=== PATIENT | male | born 1980 | race Two or more races ===

== ENCOUNTER 2019-08-29 00:18 | Emergency (ER) | payer MEDICAID ==
[~2019-08-29] VITALS: Ht 177.8 cm; Wt 156.5 kg
[2019-08-29] MEDS ORDERED: IOHEXOL 300 MG/ML 100ML BOTTLE IJ ONE (01:06)
[2019-08-29 01:23] LABS: Basophils # (auto) 0 uL; Basophils % (auto) 0.2 % (0.0-2.0); Eosinophils # (auto) 0 uL; Eosinophils % (auto) 0.5 % (0.0-7.0); Lymphocytes # (auto) 3.2 uL; Lymphocytes % (auto) 41.6 % (10.0-50.0); Mean Corpuscular Hemoglobin 28.9 pg (28.0-32.0); Mean Corpuscular Volume 84.9 fL (80.0-100.0); Monocytes # (auto) 0.7 uL; Monocytes % (auto) 9.3 % (0.0-12.0); Neutrophils # (auto) 3.8 uL; Neutrophils % (auto) 48.4 % (37.0-80.0); Nucleated Red Blood Cells % 0.1 %; Platelet Count (auto) 233 10^3/uL (140-450); Red Blood Cells 5.18 10^6/uL (4.5-5.90); White Blood Cell 7.8 10^3/uL (4.4-10.8)
[2019-08-29 01:40] LABS: Albumin 3.9 g/dL (3.4-5.0); Anion Gap 7 (5-15); BUN/Creatinine Ratio 13.1; Blood Urea Nitrogen 13 mg/dL (7-18); Calcium 8.5 mg/dL (8.5-10.1); Carbon Dioxide 26 mmol/L (21-32); Chloride 107 mmol/L (98-107); GFR African American 109 mL/min; GFR Non-African American 90 mL/min; Glucose 98 mg/dL (74-106); Lipase 112 U/L (73-393); Magnesium 2.2 mg/dL (1.6-2.6); Potassium 3.6 mmol/L (3.5-5.1); Sodium 140 mmol/L (136-145)
[2019-08-29 01:49] LABS: Alkaline Phosphatase 89 U/L (45-117); Amylase 1197 U/L (25-115); Aspartate Aminotransferase 31 U/L (15-37); Bilirubin, Total 0.3 mg/dL (0.2-1.0); Total Protein 8.3 g/dL (6.4-8.2)
[2019-08-29 01:51] LABS: Alanine Aminotransferase 44 U/L (16-61)
[2019-08-29] MEDS ORDERED: HYDROcodone-ACET 5/325MG TAB PO ONE (03:00)
[2019-08-29] MEDS ORDERED: cefTRIAXone 1GM/50ML D5W 50 ML IV ONE (03:00)
[2019-08-29 03:23] VITALS: BP 151/78
== END 2019-08-29 03:25 | disposition home or self-care (01) ==
LOC: ER 00:20
DX: K11.21 Acute sialoadenitis (principal); F45.8 Other somatoform disorders; F41.9 Anxiety disorder, unspecified
CPT/HCPCS: 36415; 70491; 71045; 80053; 82150; 83605; 83690; 83735; 84484; 85025; 87040; 93005; 96365; 99284; J0696; Q9967

== ENCOUNTER 2022-05-14 18:48 | Emergency (ER) | payer MEDICAID, OTHER ==
[~2022-05-14] VITALS: Ht 177.8 cm; Wt 106.0 kg
[2022-05-15 05:56] VITALS: BP 132/69
== END 2022-05-15 06:01 | disposition home or self-care (01) ==
LOC: ER 18:48
DX: M79.10 Myalgia, unspecified site (principal); H53.8 Other visual disturbances; M54.2 Cervicalgia; R51.9 Headache, unspecified
CPT/HCPCS: 72040

== ENCOUNTER 2023-06-20 03:43 | Emergency (ER) | payer OTHER ==
[~2023-06-20] VITALS: Ht 172.7 cm; Wt 114.7 kg
[2023-06-20 05:53] VITALS: BP 123/70; PULSE 51; RESP 16; O2SAT 100
[2023-06-20] MEDS ORDERED: AUG875T PO (09:11)
== END 2023-06-20 09:20 | disposition home or self-care (01) ==
LOC: ER 03:43
DX: S16.1XXA Strain of muscle, fascia and tendon at neck level, initial encounter (principal); S00.83XA Contusion of other part of head, initial encounter; S20.214A Contusion of middle front wall of thorax, initial encounter; J01.80 Other acute sinusitis; Z79.899 Other long term (current) drug therapy; W01.198A Fall on same level from slipping, tripping and stumbling with subsequent striking against other object, initial encounter; Y93.89 Activity, other specified; Y92.89 Other specified places as the place of occurrence of the external cause; Y99.8 Other external cause status
CPT/HCPCS: 70450; 70486; 71045; 72125